=== PATIENT | female | born 1985 | race Caucasian/White ===

== ENCOUNTER → 2021-12-15 | Outpatient (CLI) | payer OTHER ==
[2021-12-15 16:21] LABS: BASO # 0.1 10^3/uL (0.0-0.2); BASO % 1.4 % (0.0-1.0); EOS # 0.2 10^3/uL (0.0-0.5); EOS % 2.6 % (0.0-3.0); HEMOGLOBIN 12.7 g/dl (12.0-15.5); LYMPH # 2.1 10^3/uL (1.5-5.0); LYMPH % 29.9 % (24.0-44.0); MEAN CORPUSCULAR HEMOGLOBIN 28.7 pg (27.0-33.0); MEAN CORPUSCULAR HGB CONC 32.6 g/dl (32.0-36.5); MEAN CORPUSCULAR VOLUME 88.2 fl (80.0-96.0); MONO # 0.5 10^3/uL (0.0-0.8); MONO % 7.5 % (2.0-8.0); NEUTROPHILS # 4.1 10^3/uL (1.5-8.5); NEUTROPHILS % 58.3 % (36.0-66.0); PLATELET COUNT, AUTOMATED 312 10^3/uL (150-450); RED BLOOD COUNT 4.42 10^6/uL (4.00-5.40)
[2021-12-15 16:57] LABS: ALBUMIN 3.9 GM/DL (3.2-5.2); ALT/SGPT 18 U/L (12-78); BILIRUBIN,TOTAL 0.3 MG/DL (0.2-1.0); BLOOD UREA NITROGEN 8 MG/DL (7-18); CALCIUM LEVEL 9.9 MG/DL (8.5-10.1); CARBON DIOXIDE LEVEL 29 MEQ/L (21-32); CHLORIDE LEVEL 108 MEQ/L (98-107); CREATININE FOR GFR 1.04 MG/DL (0.55-1.30); FREE T4 0.54 NG/DL (0.76-1.46); GLOMERULAR FILTRATION RATE > 60.0 (>60); GLUCOSE, FASTING 79 MG/DL (70-100); POTASSIUM SERUM 4.3 MEQ/L (3.5-5.1); SODIUM LEVEL 141 MEQ/L (136-145); TOTAL PROTEIN 6.9 GM/DL (6.4-8.2)
[2021-12-15 16:58] LABS: THYROGLOBULIN ANTIBODY 19.1 U/ML (<60.0); THYROID PEROXIDASE ANTIBODY 404.7 U/ML (<60.0)
== END ==
LOC: M RAD 15:50
PROVIDERS: ATTEND Nurse Practitioner Adult Health
DX: R91.8 Other nonspecific abnormal finding of lung field (principal); E06.3 Autoimmune thyroiditis; F41.1 Generalized anxiety disorder

== ENCOUNTER → 2022-02-11 | Outpatient (CLI) | payer OTHER ==
[2022-02-11 15:28] LABS: CHOLESTEROL LEVEL 251 MG/DL (<200); CHOLESTEROL RISK RATIO 4.921 (<5); HDL CHOLESTEROL 51 MG/DL (>40); LDL CHOLESTEROL 180 MG/DL (<100); NON-HDL-C 200 MG/DL; TRIGLYCERIDES LEVEL 100 MG/DL (<150)
[2022-02-11 15:36] LABS: HEPATITIS B SURFACE ANTIBODY POSITIVE (POSITIVE)
[2022-02-11 15:46] LABS: HEPATITIS B SURFACE ANTIGEN NEGATIVE (NEGATIVE)
[2022-02-11 16:14] LABS: HEPATITIS B CORE ANTIBODY IGM NEGATIVE (NEGATIVE); HEPATITIS C VIRUS ABY INDEX 0.1 INDEX (<0.8)
[2022-02-11 16:15] LABS: HIV 1&2 SCREEN CENTAUR NEGATIVE (NEGATIVE)
== END ==
LOC: M LAB 12:09
PROVIDERS: ATTEND Nurse Practitioner Family
DX: L40.9 Psoriasis, unspecified (principal)

== ENCOUNTER → 2022-04-14 | Outpatient (CLI) | payer OTHER | LOC: M RAD 08:05 | PROVIDERS: ATTEND Physician Assistant | DX: R10.811 Right upper quadrant abdominal tenderness (principal) ==

== ENCOUNTER → 2022-11-23 | Outpatient (REF) | payer OTHER | LOC: M LAB REF 16:56 | PROVIDERS: ATTEND Physician Assistant Medical | DX: J32.4 Chronic pansinusitis (principal) ==

== ENCOUNTER → 2023-06-20 | Outpatient (CLI) | payer OTHER ==
[2023-06-20 12:01] LABS: FREE T4 1.57 NG/DL (0.89-1.76); THYROID STIMULATING HORMONE 0.139 uIU/ML (0.55-4.78)
== END ==
LOC: M LAB 10:36
PROVIDERS: ATTEND Nurse Practitioner Adult Health
DX: E06.3 Autoimmune thyroiditis (principal)

== ENCOUNTER → 2023-06-27 | Outpatient (CLI) | payer OTHER ==
[~2023-06-27] MED LIST: ISOVUE-370 76% 100ML VIAL As Ordered ONE
== END ==
LOC: M RAD 09:44
PROVIDERS: ATTEND Nurse Practitioner Adult Health
DX: R91.8 Other nonspecific abnormal finding of lung field (principal)
CPT/HCPCS: 71260; Q9967

== ENCOUNTER → 2023-10-19 | Outpatient (CLI) | payer OTHER ==
[2023-10-19 13:14] LABS: FREE T4 0.59 NG/DL (0.89-1.76)
[2023-10-19 13:18] LABS: THYROID STIMULATING HORMONE > 150.000 uIU/ML (0.55-4.78)
== END ==
LOC: M LAB 11:48
PROVIDERS: ATTEND Nurse Practitioner Adult Health
DX: E06.3 Autoimmune thyroiditis (principal)

== ENCOUNTER → 2023-11-15 | Outpatient (CLI) | payer OTHER ==
[2023-11-15 12:31] LABS: THYROID STIMULATING HORMONE 24.003 uIU/ML (0.55-4.78)
[2023-11-15 12:32] LABS: FREE T4 1.3 NG/DL (0.89-1.76)
== END ==
LOC: M LAB 11:31
PROVIDERS: ATTEND Nurse Practitioner Adult Health
DX: E06.3 Autoimmune thyroiditis (principal)

== ENCOUNTER → 2024-03-04 | Outpatient (CLI) | payer OTHER ==
[2024-03-04 14:17] LABS: FREE T4 1.81 NG/DL (0.89-1.76); THYROID STIMULATING HORMONE 0.287 uIU/ML (0.55-4.78)
== END ==
LOC: M LAB 13:17
PROVIDERS: ATTEND Family Medicine
DX: E06.3 Autoimmune thyroiditis (principal)

== ENCOUNTER → 2024-04-22 | Outpatient (CLI) | payer OTHER ==
[2024-04-22 11:20] LABS: FREE T4 1.14 NG/DL (0.89-1.76); THYROID STIMULATING HORMONE 7.701 uIU/ML (0.55-4.78)
[2024-04-22 16:19] LABS: FREE T3 2.9 PG/ML (2.3-4.2)
[2024-04-22 16:20] LABS: TOTAL T3 85.3 NG/DL (60.0-181.0)
== END ==
LOC: M LAB 10:05
PROVIDERS: ATTEND Family Medicine
DX: E06.3 Autoimmune thyroiditis (principal)

== ENCOUNTER → 2024-06-04 | Outpatient (CLI) | payer OTHER ==
[2024-06-04 11:26] LABS: FREE T4 1.75 NG/DL (0.89-1.76); THYROID STIMULATING HORMONE 0.778 uIU/ML (0.55-4.78)
== END ==
LOC: M LAB 10:03
PROVIDERS: ATTEND Nurse Practitioner Adult Health
DX: E06.3 Autoimmune thyroiditis (principal)

== ENCOUNTER → 2024-06-13 | Outpatient (REF) | payer OTHER | LOC: M LAB REF 16:48 | PROVIDERS: ATTEND Family Medicine | DX: B37.2 Candidiasis of skin and nail (principal) ==